=== PATIENT | male | born 1955 | race Caucasian/White ===

== ENCOUNTER → 2016-11-29 | Outpatient (CLI) | payer MEDICARE ==
[~2016-11-29] MED LIST: CARTIA XT PO; GABAPENTIN300 MG PO; HYDROCODON-ACE1 EACH PO; L-LYSINE; MELOXICAM15 MG PO; PRILOSEC PO; ZOLOFT PO
--- NOTE | ~2016-11-29 | US5 ---
[facility] A Service of [facility] & [facility] RADIOLOGY TEXT RESULTS PATIENT: JENNIFER LYNN LOCATION: [facility] : 55 UNIT #: [id number] AGE: [address]: SAUL LANDA MD SEX: M ORDER DR: [id number] [facility] [address] [place], [place] [address] [id number] O MR#: [id number] #: [id number] NAME: JENNIFER LYNN : 1955 SEX: M STUDY DATE/TIME: 11/29/2016 10:34 UNIT: [facility] ROOM: STUDY DESCRIPTION: US Abdominal Complete Attending Physician: Saul Landa M.D. Referring Physician: Saul Landa M.D. Ordering Physician: Saul Landa M.D. Primary Care Physician: Saul Landa M.D. MEDICAL IMAGING REPORT This report is preliminary unless electronic signature is present EXAM Abdominal ultrasound complete 11/29/2016 INDICATIONS Elevated liver enzymes diagnosed 11/16/2016, hypertension, hyperlipidemia, diabetes, bloating for a month. TECHNIQUE Sonographic imaging of the abdomen was performed. Correlation is made with CT abdomen and pelvis 02/25/2010 FINDINGS Pancreas unremarkable to the extent visualized. Segmentally visualized aorta and IVC within normal limits. The liver demonstrates fatty infiltration. It measures 15.5 cm long axis. There is no focal liver mass, ascites or intrahepatic ductal dilatation. The kidneys are nonobstructed. The right measures 12.2 cm long axis and the left 13.1 cm. No shadowing stone on either side. Incidental right renal cyst measures 19 mm. The gallbladder demonstrates a small amount of sludge and at least 1 shadowing stone but is otherwise unremarkable. Extrahepatic common bile duct measures 6 mm. The spleen measures 11.1 cm long axis. IMPRESSION 1. Fatty infiltration of the liver. 2. Gallbladder sludge and at least 1 shadowing stone without complicating features. 3. Incidental right renal cyst. Limited evaluation of the pancreas. Dictated by... Konstantin Gonzalez M.D. THIS IS AN ELECTRONICALLY VERIFIED REPORT Konstantin Gonzalez M.D. at 11/30/2016 7:17 AM [facility] A Service of [facility] RADIOLOGY TEXT RESULTS PATIENT: JENNIFER LYNN LOCATION: [facility] ACC #: [id number] : 55 UNIT #: [id number] AGE: [address]: SAUL LANDA MD SEX: M ORDER DR: WILBUR/mercy TD: 11/29/2016 22:51 JOB #: [id number] MEDICAL IMAGING REPORT Page 1 of 1 COPY
== END | disposition home or self-care (01) ==
LOC: CGUS 10:11
DX: R79.89 Other specified abnormal findings of blood chemistry (principal); K76.0 Fatty (change of) liver, not elsewhere classified; K82.8 Other specified diseases of gallbladder
CPT/HCPCS: 76700